=== PATIENT | female | born 2005 | race Caucasian/White ===

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

== ENCOUNTER 2024-11-04 22:02 | Inpatient (IN) ==
[2024-11-04] MEDS ORDERED: Buffered Lidocaine 1% SYRIN 1 ml INTRADERM ONE (22:44)
[2024-11-04] MEDS ORDERED: Lidocaine 1% VIAL 10 MG/ML 30 ML VIAL INJ PRN (22:44)
[2024-11-04] MEDS ORDERED: Phenylephrine 40 mcg/mL 10mL (400mcg) SYRINGE IV PUSH PRN ×2 (22:53)
[2024-11-04] MEDS ORDERED: Sodium Citrate/Citric Acid LIQ 15 ML UDC PO PRN (22:53)
[2024-11-04] MEDS ORDERED: Lactated Ringers 1000 ml BAG 1,000 ML IV ONE (22:53)
[2024-11-04] MEDS ORDERED: Lactated Ringers 1000 ml BAG 1,000 ML IV SCH ×2 (23:00)
[2024-11-04] MEDS ORDERED: Lidocaine 1.5% EPI 1:200,000 30 ML SDV ONE (23:04)
[2024-11-04] MEDS ORDERED: OBEPIDURAL (200 ML) 200 ML EPIDURAL ONE (23:04)
[2024-11-04] MEDS: OBEPIDURAL (200 ML) 200 ML EPIDURAL SCH (23:05)
[2024-11-04 23:07] LABS: Hemoglobin 12.6 g/dL (11.5-14.3); Mean Corpuscular Hemoglobin 32.7 pg (27-33); Mean Corpuscular Volume 96.3 fL (80-97); Mean Platelet Volume 8.7 fL (7.5-11.2); Platelet Count 272 10^3/uL (150-450); Red Blood Count 3.84 10^6/uL (3.63-4.92); Red Cell Distribution Width 13.8 % (12-17); White Blood Count 19.6 10^3/uL (3.8-11.8)
[2024-11-04] MEDS: fentaNYL 100 mcg/2 ml 50 MCG/ML VIAL IV SLOW PU ONE (23:09)
[2024-11-04] MEDS: Ondansetron 4 mg VIAL 2 MG/ML 2 ml VIAL IV PRN (23:11)
[2024-11-05 01:11] LABS: ABS Lymphocytes 2.3 10^3/uL (1.0-4.8); ABS Monocytes 1.9 10^3/uL (0.0-0.9); ABS Neutrophils 15.4 10^3/uL (1.5-7.6); Eosinophil % 0.1 %; Lymphocyte % 11.7 %
[2024-11-05 02:11] LABS: Urine Appearance Clear; Urine Bilirubin Negative (Negative); Urine Blood Negative (Negative); Urine Color Light-Yellow; Urine Glucose Negative (Negative); Urine Ketones 2+ (Negative); Urine Nitrite Negative (Negative); Urine Protein Trace (Negative); Urine Urobilinogen Negative (Negative)
[2024-11-05 02:22] LABS: Urine Benzodiazepine Screen None Detected (None Detect); Urine Cannabinoids Screen None Detected (None Detect); Urine Opiates Screen None Detected (None Detect)
[2024-11-05] MEDS ORDERED: Oxytocin in LR 20,000 MILLI.UNIT/1,000 ML BAG IV ONE (03:19)
[2024-11-05] MEDS ORDERED: Glycerin ADULT 2.4 gm SUPP PR PRN (08:32)
[2024-11-05] MEDS ORDERED: Polyethylene Glycol 3350 17 GM PACKET PO PRN (08:32)
[2024-11-05] MEDS ORDERED: ceFAZolin VIAL 2 GM in NS 0.9% 100 ml BAG 100 ML IVPB ONE (08:34)
[2024-11-05] MEDS ORDERED: Oxytocin in LR 20,000 MILLI.UNIT/1,000 ML BAG IV SCH (08:35)
[2024-11-05] MEDS: Witch Hazel PAD JAR TOPICAL PRN (09:50)
[2024-11-05] MEDS: Dibucaine 1% OINT 28.35 GM TUBE PR PRN (09:50)
[2024-11-05] MEDS: ceFAZolin 2 GM/50 ML BAG IV ONE (10:04)
[2024-11-05] MEDS: Lactated Ringers 1000 ml BAG 1,000 ML IV ONE (10:05)
[2024-11-05 14:48] LABS: Hematocrit 28.6 % (35-45); Hemoglobin 9.9 g/dL (11.5-14.3); Mean Corpuscular Hemoglobin 33.3 pg (27-33); Mean Corpuscular Hgb Conc 34.7 g/dL (31-36); Mean Corpuscular Volume 96.2 fL (80-97); Mean Platelet Volume 8.6 fL (7.5-11.2); Platelet Count 230 10^3/uL (150-450); Red Blood Count 2.98 10^6/uL (3.63-4.92); Red Cell Distribution Width 13.4 % (12-17); White Blood Count 26.5 10^3/uL (3.8-11.8)
[2024-11-05 15:43] LABS: ABS Basophils 0.1 10^3/uL (0.0-0.1); ABS Lymphocytes 2.6 10^3/uL (1.0-4.8); ABS Monocytes 2.9 10^3/uL (0.0-0.9); ABS Neutrophils 20.9 10^3/uL (1.5-7.6); Eosinophil % 0.2 %
[2024-11-05 16:53] VITALS: BP 112/68
== END 2024-11-05 17:20 | disposition home or self-care (01) | DRG 560 ==
LOC: MCHOBOUT 22:02 → MCHOB 22:48